=== PATIENT | female | born 1965 | race Caucasian/White ===

== ENCOUNTER 2022-02-01 04:36 | Emergency (ER) | payer OTHER, MEDICAID ==
[~2022-02-01] VITALS: Ht 162.6 cm; Wt 89.8 kg
[2022-02-01 05:02] LABS: BASOPHILS % (AUTO) 0.6 % (0.0-5.0); EOSINOPHILS % (AUTO) 2.8 % (0.0-8.0); HEMATOCRIT 40.9 % (36-48); LYMPHOCYTES % (AUTO) 24.1 % (21.0-51.0); MEAN CORPUSCULAR HEMOGLOBIN 30.6 pg (27.0-33.0); MEAN CORPUSCULAR VOLUME 90.1 fL (79-99); MONOCYTES % (AUTO) 5.7 % (3.0-13.0); NEUTROPHILS % (AUTO) 66.4 % (40.0-77.0); PLATELET COUNT (AUTO) 303 K/uL (130-400); RED BLOOD CELL COUNT(AUTO) 4.54 MIL/uL (4.00-5.50); RED CELL DISTRIBUTION WIDTH 12.6 % (11.0-15.5)
[2022-02-01 05:20] LABS: APPEARANCE,URINE CLEAR (CLEAR); BILIRUBIN,URINE NEGATIVE (NEGATIVE); COLOR,URINE YELLOW (YELLOW); CREATININE 0.7 mg/dL (0.5-1.5); GLUCOSE, URINE (UA) NEGATIVE (NEGATIVE); KETONES,URINE NEGATIVE (NEGATIVE); LEUKOCYTE ESTERASE ,URINE NEGATIVE (NEGATIVE); NITRATE,URINE NEGATIVE (NEGATIVE); OCCULT BLOOD,URINE NEGATIVE (NEGATIVE); PH,URINE 7.5 (5.0-8.0); POTASSIUM 4.5 mmol/L (3.5-5.1); PROTEIN,URINE NEGATIVE (NEGATIVE); UROBILINOGEN,URINE 0.2 mg/dL (0.2-1.0)
[2022-02-01 05:25] LABS: ALBUMIN 3.5 g/dL (3.5-5.0); TOTAL PROTEIN, SERUM 7.6 g/dL (6.0-8.3)
[2022-02-01] MEDS ORDERED: ONDANSETRON 4MG INJ IVP ONE (05:30)
[2022-02-01] MEDS ORDERED: MORPHINE 4 MG SYG IVP ONE ×3 (05:30→09:00)
[2022-02-01] MEDS ORDERED: METRONIDAZOLE 500MG/100ML BAG 100 ML ONE (06:44)
[2022-02-01] MEDS ORDERED: LEVOFLOXACIN 500 MG/D5W 100 ML 100 ML IV ONE (07:00)
[2022-02-01] MEDS ORDERED: CIPR-278 PO (08:48)
[2022-02-01] MEDS ORDERED: OXYC-38 PO (08:48)
[2022-02-01] MEDS ORDERED: METR375C2 PO (08:48)
[2022-02-01] MEDS ORDERED: DOCU-116 PO (08:48)
[2022-02-01 08:52] VITALS: BP 115/67
[2022-02-01] MEDS ORDERED: HYDR-4060 PO (11:18)
[2022-02-01] MEDS ORDERED: METRONIDAZOLE 500MG/100ML BAG 100 ML IVPB ONE (14:00)
== END 2022-02-01 09:20 | disposition home or self-care (01) ==
LOC: EDH 04:36
DX: K57.32 Diverticulitis of large intestine without perforation or abscess without bleeding (principal); I10 Essential (primary) hypertension; Z90.49 Acquired absence of other specified parts of digestive tract
CPT/HCPCS: 99285; 74176; 96365; 96375; 80053; 85025; 81003; 36415; 96376; J1956; J2405; J2270 ×3; J3490

== ENCOUNTER 2022-03-23 02:57 | Emergency (ER) | payer OTHER, MEDICAID ==
[~2022-03-23] VITALS: Ht 162.6 cm; Wt 88.5 kg
[~2022-03-23 02:57] MED LIST: CIPR-278 PO; DOCU-116 PO; HYDR-4060 PO; METR375C2 PO; OXYC-38 PO
[2022-03-23 03:22] LABS: BASOPHILS % (AUTO) 0.7 % (0.0-5.0); EOSINOPHILS % (AUTO) 5.6 % (0.0-8.0); HEMATOCRIT 41.8 % (36-48); LYMPHOCYTES % (AUTO) 38.5 % (21.0-51.0); MEAN CORPUSCULAR HEMOGLOBIN 30.5 pg (27.0-33.0); MEAN CORPUSCULAR VOLUME 89.9 fL (79-99); MONOCYTES % (AUTO) 6.8 % (3.0-13.0); NEUTROPHILS % (AUTO) 48.3 % (40.0-77.0); PLATELET COUNT (AUTO) 342 K/uL (130-400); RED BLOOD CELL COUNT(AUTO) 4.65 MIL/uL (4.00-5.50); RED CELL DISTRIBUTION WIDTH 12.5 % (11.0-15.5); WHITE BLOOD COUNT (AUTO) 7.1 K/uL (4.8-10.8)
[2022-03-23] MEDS ORDERED: ASPIRIN 81MG CHEW TAB PO ONE (03:30)
[2022-03-23 03:49] LABS: AMPHET/METH SCREEN,URINE NEGATIVE (NEGATIVE); BARBITURATE SCREEN, URINE NEGATIVE (NEGATIVE); BENZODIAZEPINES SCREEN,URINE NEGATIVE (NEGATIVE); CANNABINOID SCREEN,URINE NEGATIVE (NEGATIVE); COCAINE SCREEN,URINE NEGATIVE (NEGATIVE); PHENCYCLIDINE SCREEN,URINE NEGATIVE (NEGATIVE)
[2022-03-23 03:49] LABS: CREATININE 0.8 mg/dL (0.5-1.5); POTASSIUM 3.9 mmol/L (3.5-5.1)
[2022-03-23 03:55] LABS: ALBUMIN 4.1 g/dL (3.5-5.0); TOTAL PROTEIN, SERUM 7.4 g/dL (6.0-8.3)
[2022-03-23] MEDS: ONDANSETRON 4MG INJ IVP ONE ×2 (04:03→04:06)
[2022-03-23] MEDS ORDERED: PROMETHAZINE HCL 25 MG/ML 1ML AMPULE IM ONE (04:30)
[2022-03-23] MEDS ORDERED: IOHEXOL 350 MG/ML 100ML INFUS..BTL IV ONE (04:43)
[2022-03-23] MEDS ORDERED: 0.9%NACL 1000ML 1,000 ML IV ONE (05:00)
[2022-03-23 05:59] VITALS: BP 128/86
== END 2022-03-23 06:12 | disposition home or self-care (01) ==
LOC: EDH 03:14
DX: F43.0 Acute stress reaction (principal); I10 Essential (primary) hypertension; F17.210 Nicotine dependence, cigarettes, uncomplicated; R07.89 Other chest pain; Z79.899 Other long term (current) drug therapy; Z90.49 Acquired absence of other specified parts of digestive tract
CPT/HCPCS: 99285; 96360; 71275; 71045; 84484; 80053; 80305; 85025; 85378; 36415; 93005; 96372; J7030; J2550; J2405; Q9967